=== PATIENT | female | born 1945 | race African-American/Black ===

== ENCOUNTER 2018-02-09 19:31 | Inpatient (IN) | payer MEDICARE, MEDICAID ==
[~2018-02-09] VITALS: Ht 175.3 cm; Wt 61.7 kg
[~2018-02-09 19:31] MED LIST: AMLO10TA4 PO; ASPI-1159 PO; BACL-141; BUPR-84; DOXE25CA3; GABA800T97 PO; IBUP-2030 PO; LISI-604 PO; METH-612 PO; OXYCONTIN; QUET50TA; TRAZ-129
[2018-02-09] MEDS ORDERED: SODIUM CHLORIDE 0.9% 1,000 ML IV ONE (19:51)
[2018-02-09 20:17] LABS: BASOPHILS % 0.8 % (0.0-2.0); HEMATOCRIT. 33.4 % (36.0-48.0); HEMOGLOBIN. 10.8 g/dL (12.0-16.0); MEAN CORPUSCULAR HEMOGLOBIN 28.4 pg (28.0-32.0); MEAN CORPUSCULAR VOLUME 87.7 fL (81.0-99.0); MEAN PLATELET VOLUME 6.8 fl (7.4-10.4); MONOCYTES % 5.1 % (2.0-8.0); NEUTROPHILS % 82.1 % (40.0-76.0); PLATELET 520 x1000/uL (130-400); RED CELL DISTRIBUTION WIDTH 17.2 % (11.6-14.6)
[2018-02-09 20:20] LABS: CHLORIDE 111 mEq/L (98-107)
[2018-02-09 20:22] LABS: PROTHROMBIN TIME 10.7 sec (9.4-11.6)
[2018-02-09 20:25] LABS: AMMONIA < 25 uMol/L (<32); ETHANOL BLOOD < 10 mg/dL
[2018-02-09 20:28] LABS: CLARITY URINE CLEAR (CLEAR); COLOR URINE YELLOW (YELLOW); KETONES URINE NEGATIVE (NEGATIVE); LEUKOCYTE ESTERASE URINE NEGATIVE (NEGATIVE); NITRITE URINE NEGATIVE (NEGATIVE); OCCULT BLOOD URINE 2+ (NEGATIVE); PH URINE 5.5 (4.5-8.0); PROTEIN URINE 1+ (NEGATIVE); SPECIFIC GRAVITY URINE 1.013 (1.005-1.030); UROBILINOGEN URINE 0.2 E.U./dL (0.2-1.0)
[2018-02-09 20:45] LABS: *AMPHETAMINES SCREEN URINE NEGATIVE (NEGATIVE); *BARBITURATES SCREEN URINE NEGATIVE (NEGATIVE); *BENZODIAZEPINES SCREEN URINE NEGATIVE (NEGATIVE); *COCAINE SCREEN URINE NEGATIVE (NEGATIVE); METHADONE URINE SCREEN NEGATIVE (NEGATIVE); OPIATES URINE SCREEN NEGATIVE (NEGATIVE)
[2018-02-09 20:47] LABS: CANNABINOID URINE SCREEN NEGATIVE (NEGATIVE); PHENCYCLIDINE URINE SCREEN NEGATIVE (NEGATIVE)
[2018-02-09] MEDS ORDERED: LORAZEPAM 2MG/ML CPJ IV ONE (22:15)
[2018-02-10 04:37] VITALS: BP 107/88
[2018-02-10] MEDS ORDERED: LORAZEPAM 2MG/ML CPJ IV PRN (05:45)
[2018-02-10] MEDS ORDERED: ONDANSETRON HCL 4MG/2ML VIAL IV PRN (05:45)
[2018-02-10 06:00] VITALS: BP 107/88
[2018-02-10] MEDS ORDERED: DEXT 5%/0.45% NACL KCL 20MEQ/L 1,000 ML IV ONE (07:00)
[2018-02-10 08:00] VITALS: BP 196/100
[2018-02-10 08:26] LABS: HEMATOCRIT 33.5 % (36.0-48.0); HEMOGLOBIN 11.2 g/dL (12.0-16.0); MEAN CORPUSCULAR VOLUME 86.8 fL (81.0-99.0); PLATELET 522 x1000/uL (130-400); RED BLOOD CELL COUNT 3.86 mill/uL (4.2-5.4); RED CELL DISTRIBUTION WIDTH 17.3 % (11.6-14.6)
[2018-02-10] MEDS: PANTOPRAZOLE SODIUM 40 MG/VIAL IV SCH (09:18)
[2018-02-10] MEDS ORDERED: ONDANSETRON 4MG ODT PO PRN (10:00)
[2018-02-10] MEDS: CLONIDINE 0.1MG TABLET PO PRN (10:10)
[2018-02-10] MEDS: LISINOPRIL 20MG TABLET PO SCH (11:16)
[2018-02-10] MEDS: AMLODIPINE 10MG TABLET PO SCH (11:16)
[2018-02-10 12:00] VITALS: BP 192/91
[2018-02-10] MEDS: CEFTRIAXONE 1 G PREMIX 50 ML IV SCH (12:00)
[2018-02-10 16:00] VITALS: BP 130/103
[2018-02-10 20:00] VITALS: BP 182/97
[2018-02-10] MEDS: HYDRALAZINE 20MG/ML VIAL IV PRN (22:00)
[2018-02-11] VITALS: BP 166/93
[2018-02-11] MEDS: HYDRALAZINE 20MG/ML VIAL IV PRN (06:03)
[2018-02-11 07:05] LABS: BASOPHILS % 0.7 % (0.0-2.0); EOSINOPHILS % 0.2 % (0.0-5.0); HEMATOCRIT. 37.8 % (36.0-48.0); HEMOGLOBIN. 12.5 g/dL (12.0-16.0); LYMPHOCYTES % 14.6 % (20.0-50.0); MEAN CORPUSCULAR HEMOGLOBIN 28.5 pg (28.0-32.0); MEAN CORPUSCULAR VOLUME 86.5 fL (81.0-99.0); MEAN PLATELET VOLUME 7.3 fl (7.4-10.4); MONOCYTES % 8.7 % (2.0-8.0); NEUTROPHILS % 75.8 % (40.0-76.0); PLATELET 596 x1000/uL (130-400); RED BLOOD CELL COUNT 4.37 mill/uL (4.2-5.4); RED CELL DISTRIBUTION WIDTH 17.4 % (11.6-14.6)
[2018-02-11 08:00] VITALS: BP 157/79
[2018-02-11] MEDS: PANTOPRAZOLE SODIUM 40 MG/VIAL IV SCH (08:56)
[2018-02-11] MEDS: LISINOPRIL 20MG TABLET PO SCH (08:56)
[2018-02-11] MEDS: AMLODIPINE 10MG TABLET PO SCH (08:57)
[2018-02-11] MEDS: CEFTRIAXONE 1 G PREMIX 50 ML IV SCH (11:48)
[2018-02-11 12:00] VITALS: BP 161/98
[2018-02-11] MEDS: CLONIDINE 0.1MG TABLET PO PRN (12:35)
[2018-02-11] MEDS ORDERED: LACTULOSE 20G/30ML UDC PO NR (13:15)
[2018-02-11 16:00] VITALS: BP 157/89
[2018-02-11] MEDS: QUETIAPINE FUMARATE 25MG TABLET PO SCH ×2 (17:07→21:01)
[2018-02-11] MEDS: CEPHALEXIN 500MG CAPSULE PO SCH (17:47)
[2018-02-11 20:00] VITALS: BP 144/89
[2018-02-11] MEDS: SENNOSIDES 8.6MG TABLET PO PRN (21:01)
[2018-02-12] MEDS: CEPHALEXIN 500MG CAPSULE PO SCH ×3 (00:14→11:51)
[2018-02-12 03:44] VITALS: BP 137/88
[2018-02-12 06:37] LABS: HEMOGLOBIN 11.9 g/dL (12.0-16.0); MEAN CORPUSCULAR HEMOGLOBIN 28.4 pg (28.0-32.0); MEAN CORPUSCULAR VOLUME 87.9 fL (81.0-99.0); PLATELET 460 x1000/uL (130-400); RED CELL DISTRIBUTION WIDTH 17.7 % (11.6-14.6)
[2018-02-12] MEDS: LORAZEPAM 2MG/ML CPJ IV PRN ×3 (07:02→21:26)
[2018-02-12 08:00] VITALS: BP 115/72
[2018-02-12] MEDS: SENNOSIDES 8.6MG TABLET PO PRN (08:02)
[2018-02-12] MEDS: PANTOPRAZOLE SODIUM 40 MG/VIAL IV SCH (08:02)
[2018-02-12] MEDS: QUETIAPINE FUMARATE 25MG TABLET PO SCH ×2 (08:03→20:27)
[2018-02-12] MEDS: AMLODIPINE 10MG TABLET PO SCH (08:04)
[2018-02-12] MEDS: LISINOPRIL 20MG TABLET PO SCH (08:04)
[2018-02-12] MEDS: SODIUM CHLORIDE 0.9% 1,000 ML IV SCH (11:51)
[2018-02-12 12:00] VITALS: BP 138/79
[2018-02-12] MEDS ORDERED: LEVAQUIN XX SCH (15:45)
[2018-02-12] MEDS ORDERED: LEVOFLOXACIN 500MG TABLET PO SCH (15:45)
[2018-02-12 16:00] VITALS: BP 132/78
[2018-02-12] MEDS ORDERED: LEVOFLOXACIN 250MG TABLET PO SCH (16:00)
[2018-02-12] MEDS ORDERED: NA PHOS,M-B/NA PHOS,DI-BA ENEMA 118ML PR PRN (16:45)
[2018-02-12] MEDS ORDERED: NA PHOS,M-B/NA PHOS,DI-BA ENEMA 118ML PR NR (18:00)
[2018-02-12 20:00] VITALS: BP 137/71
[2018-02-13] VITALS: BP 106/57
[2018-02-13 04:00] VITALS: BP 91/54
[2018-02-13] MEDS: SODIUM CHLORIDE 0.9% 1,000 ML IV SCH ×2 (04:19→21:25)
[2018-02-13] MEDS: LORAZEPAM 2MG/ML CPJ IV PRN ×2 (04:19→22:35)
[2018-02-13 06:01] LABS: CLARITY URINE CLEAR (CLEAR); COLOR URINE YELLOW (YELLOW); KETONES URINE NEGATIVE (NEGATIVE); LEUKOCYTE ESTERASE URINE NEGATIVE (NEGATIVE); NITRITE URINE NEGATIVE (NEGATIVE); OCCULT BLOOD URINE NEGATIVE (NEGATIVE); PROTEIN URINE NEGATIVE (NEGATIVE); SPECIFIC GRAVITY URINE 1.009 (1.005-1.030); UROBILINOGEN URINE 0.2 E.U./dL (0.2-1.0)
[2018-02-13 06:05] LABS: HEMATOCRIT 32.4 % (36.0-48.0); HEMOGLOBIN 10.4 g/dL (12.0-16.0); MEAN CORPUSCULAR HEMOGLOBIN 28.6 pg (28.0-32.0); PLATELET 385 x1000/uL (130-400); RED BLOOD CELL COUNT 3.63 mill/uL (4.2-5.4); RED CELL DISTRIBUTION WIDTH 17.5 % (11.6-14.6)
[2018-02-13 08:00] VITALS: BP 113/65
[2018-02-13] MEDS: FAMOTIDINE 20MG TABLET PO SCH (09:00)
[2018-02-13] MEDS: QUETIAPINE FUMARATE 25MG TABLET PO SCH ×2 (09:00→21:25)
[2018-02-13] MEDS: LISINOPRIL 20MG TABLET PO SCH (09:00)
[2018-02-13] MEDS: AMLODIPINE 10MG TABLET PO SCH (09:01)
[2018-02-13] MEDS: PANTOPRAZOLE SODIUM 40 MG/VIAL IV SCH (09:29)
[2018-02-13] MEDS: LEVOFLOXACIN 250MG TABLET PO SCH (11:18)
[2018-02-13 12:00] VITALS: BP 134/52
[2018-02-13 16:00] VITALS: BP 108/63
[2018-02-13] MEDS ORDERED: LACTULOSE 20G/30ML UDC PO SCH (16:45)
[2018-02-13] MEDS: ACETAMINOPHEN 325MG TABLET PO PRN (17:20)
[2018-02-13 20:00] VITALS: BP 117/70
[2018-02-14] VITALS: BP 114/58
[2018-02-14 04:00] VITALS: BP 129/66
[2018-02-14 07:15] LABS: EOSINOPHILS % 4.1 % (0.0-5.0); HEMATOCRIT. 28.1 % (36.0-48.0); HEMOGLOBIN. 9.4 g/dL (12.0-16.0); MEAN CORPUSCULAR HEMOGLOBIN 29.5 pg (28.0-32.0); MEAN CORPUSCULAR VOLUME 88.4 fL (81.0-99.0); MEAN PLATELET VOLUME 7.5 fl (7.4-10.4); MONOCYTES % 10.8 % (2.0-8.0); NEUTROPHILS % 45.1 % (40.0-76.0); PLATELET 334 x1000/uL (130-400); RED BLOOD CELL COUNT 3.18 mill/uL (4.2-5.4); RED CELL DISTRIBUTION WIDTH 16.9 % (11.6-14.6)
[2018-02-14 08:00] VITALS: BP 126/68
[2018-02-14] MEDS: FAMOTIDINE 20MG TABLET PO SCH (08:34)
[2018-02-14] MEDS: QUETIAPINE FUMARATE 25MG TABLET PO SCH (08:34)
[2018-02-14] MEDS: LISINOPRIL 20MG TABLET PO SCH (08:34)
[2018-02-14] MEDS: AMLODIPINE 10MG TABLET PO SCH (08:34)
[2018-02-14 11:57] VITALS: BP 152/70
[2018-02-14] MEDS: LEVOFLOXACIN 250MG TABLET PO SCH (12:13)
[2018-02-14] MEDS: ACETAMINOPHEN 325MG TABLET PO PRN (12:14)
[2018-02-14 16:06] VITALS: BP 131/80
[2018-02-14 17:51] VITALS: BP 131/80
== END 2018-02-14 18:46 | disposition home or self-care (01) | DRG 917 ==
LOC: ER 19:49 → 7WST 23:10 → ENRESERV 02-10 02:22
PROVIDERS: ADMIT Internal Medicine; ATTEND Internal Medicine
DX: T50.991A Poisoning by other drugs, medicaments and biological substances, accidental (unintentional), initial encounter (principal); G93.40 Encephalopathy, unspecified; N17.9 Acute kidney failure, unspecified; E86.0 Dehydration; F29 Unspecified psychosis not due to a substance or known physiological condition; F32.9 Major depressive disorder, single episode, unspecified; F41.9 Anxiety disorder, unspecified; R73.9 Hyperglycemia, unspecified; D64.9 Anemia, unspecified; K59.00 Constipation, unspecified; Z76.5 Malingerer [conscious simulation]; Z79.82 Long term (current) use of aspirin; Z79.899 Other long term (current) drug therapy; Z86.73 Personal history of transient ischemic attack (TIA), and cerebral infarction without residual deficits; Y92.89 Other specified places as the place of occurrence of the external cause
CPT/HCPCS: 36415; 70450; 71045; 74018; 76770; 80048; 80053; 80305; 80307; 81003; 82140; 82570; 83605; 84300; 84484; 85025; 85027; 85610; 87040; 87086; 93005; 96374; 99291; C9113; G0482; J0360; J0696; J2060; J7030; J7040; J7050

== ENCOUNTER 2018-11-13 18:36 | Inpatient (IN) | payer BC, MEDICAID ==
[~2018-11-13] VITALS: Ht 167.6 cm; Wt 59.2 kg
[~2018-11-13 18:36] MED LIST changes: -ASPI-1159 PO; -BACL-141; -BUPR-84; -DOXE25CA3; -GABA800T97 PO; -IBUP-2030 PO; -METH-612 PO; -OXYCONTIN; -QUET50TA; +QUET50TA PO; -TRAZ-129
[2018-11-13] MEDS ORDERED: ASPIRIN 81MG TABLET PO ONE (19:30)
[2018-11-13] MEDS ORDERED: NITROGLYCERIN 0.4MG TABLET SL SL PRN (19:30)
[2018-11-13 20:11] LABS: BASOPHILS % 0.8 % (0.0-2.0); EOSINOPHILS % 1.3 % (0.0-5.0); HEMATOCRIT. 31.4 % (36.0-48.0); HEMOGLOBIN. 10.3 g/dL (12.0-16.0); LYMPHOCYTES % 18.7 % (20.0-50.0); MEAN CORPUSCULAR HEMOGLOBIN 28.3 pg (28.0-32.0); MEAN CORPUSCULAR VOLUME 86.6 fL (81.0-99.0); MEAN PLATELET VOLUME 7.9 fl (7.4-10.4); MONOCYTES % 7.1 % (2.0-8.0); NEUTROPHILS % 72.1 % (40.0-76.0); PLATELET 402 x1000/uL (130-400); RED BLOOD CELL COUNT 3.63 mill/uL (4.2-5.4); RED CELL DISTRIBUTION WIDTH 17.1 % (11.6-14.6)
[2018-11-13 20:14] LABS: CHLORIDE 110 mEq/L (98-107)
[2018-11-13 20:18] LABS: D-DIMER 1.11 mg/L FEU (<0.50); PARTIAL THROMBOPLASTIN TIME 24.8 sec (23.4-31.0); PROTHROMBIN TIME 9.7 sec (9.1-11.1)
[2018-11-13 20:19] LABS: ETHANOL BLOOD < 10 mg/dL
[2018-11-13 23:09] LABS: *AMPHETAMINES SCREEN URINE NEGATIVE (NEGATIVE); *BARBITURATES SCREEN URINE NEGATIVE (NEGATIVE); *BENZODIAZEPINES SCREEN URINE NEGATIVE (NEGATIVE)
[2018-11-13 23:10] LABS: CANNABINOID URINE SCREEN NEGATIVE (NEGATIVE); METHADONE URINE SCREEN NEGATIVE (NEGATIVE); OPIATES URINE SCREEN NEGATIVE (NEGATIVE); PHENCYCLIDINE URINE SCREEN NEGATIVE (NEGATIVE)
[2018-11-13 23:11] LABS: *COCAINE SCREEN URINE NEGATIVE (NEGATIVE)
[2018-11-14] VITALS: BP 143/71
[2018-11-14] MEDS ORDERED: TEMAZEPAM 15MG CAPSULE PO PRN (00:45)
[2018-11-14 02:19] VITALS: BP 143/71
[2018-11-14] MEDS ORDERED: ACETAMINOPHEN 325MG TABLET PO PRN (03:00)
[2018-11-14] MEDS: HYDROCODONE/ACETAMINOPHEN 5/325MG TABLET PO PRN ×3 (03:14→15:23)
[2018-11-14] MEDS ORDERED: PANTOPRAZOLE 40MG DR TABLET PO SCH (07:40)
[2018-11-14 08:00] VITALS: BP 112/59
[2018-11-14 08:22] LABS: CREATINE KINASE 370 IU/L (26-192)
[2018-11-14 08:23] LABS: CREATINE KINASE MB FRACTION 5.4 ng/mL (0.5-3.6)
[2018-11-14] MEDS ORDERED: ENOXAPARIN 30MG/0.3ML SYR SUBCUT SCH (09:00)
[2018-11-14] MEDS ORDERED: ASPIRIN 81MG TABLET PO SCH (09:00)
[2018-11-14 12:00] VITALS: BP 118/54
[2018-11-14 12:04] LABS: HEMATOCRIT 30.3 % (36.0-48.0); HEMOGLOBIN 9.7 g/dL (12.0-16.0); MEAN CORPUSCULAR HEMOGLOBIN 28.3 pg (28.0-32.0); MEAN CORPUSCULAR VOLUME 88.3 fL (81.0-99.0); PLATELET 351 x1000/uL (130-400); RED BLOOD CELL COUNT 3.43 mill/uL (4.2-5.4); RED CELL DISTRIBUTION WIDTH 17.4 % (11.6-14.6)
[2018-11-14 12:07] LABS: CHLORIDE 109 mEq/L (98-107)
[2018-11-14 16:00] VITALS: BP 120/56
[2018-11-14 17:02] VITALS: BP 121/64
[2018-11-14 18:04] LABS: CREATINE KINASE 390 IU/L (26-192)
[2018-11-14 18:05] LABS: CREATINE KINASE MB FRACTION 4.1 ng/mL (0.5-3.6)
== END 2018-11-14 19:50 | disposition home or self-care (01) | DRG 880 ==
LOC: ER 18:36 → EDBEDREQ 19:31 → EDBEDREQTM 19:31 → 7WST 21:56 → EDBEDREQTM 21:59 → EDBEDREQ 21:59 → ENRESERV 22:03 → 7WST 23:53
PROVIDERS: ADMIT Internal Medicine; ATTEND Internal Medicine
DX: F41.0 Panic disorder [episodic paroxysmal anxiety] (principal); G93.40 Encephalopathy, unspecified; M62.82 Rhabdomyolysis; G89.29 Other chronic pain; I12.9 Hypertensive chronic kidney disease with stage 1 through stage 4 chronic kidney disease, or unspecified chronic kidney disease; R79.1 Abnormal coagulation profile; N18.9 Chronic kidney disease, unspecified
CPT/HCPCS: 36415; 71045; 78582; 80305; 82550; 82553; 83880; 84484; 85027; 85379; 93005; 93306; 93970; 99285; A9558; G0482; J1650

== ENCOUNTER 2018-12-05 19:33 | Emergency (ER) | payer BC, MEDICAID ==
[~2018-12-05] VITALS: Ht 165.1 cm; Wt 61.0 kg
[2018-12-05] MEDS ORDERED: SODIUM CHLORIDE 0.9% 1,000 ML IV ONE (22:34)
[2018-12-05 23:09] LABS: BASOPHILS % 0.6 % (0.0-2.0); EOSINOPHILS % 1.5 % (0.0-5.0); HEMATOCRIT. 30.5 % (36.0-48.0); HEMOGLOBIN. 9.9 g/dL (12.0-16.0); LYMPHOCYTES % 19.5 % (20.0-50.0); MEAN CORPUSCULAR HEMOGLOBIN 27.9 pg (28.0-32.0); MEAN CORPUSCULAR VOLUME 85.9 fL (81.0-99.0); MEAN PLATELET VOLUME 7.5 fl (7.4-10.4); MONOCYTES % 6.9 % (2.0-8.0); NEUTROPHILS % 71.5 % (40.0-76.0); PLATELET 410 x1000/uL (130-400); RED BLOOD CELL COUNT 3.55 mill/uL (4.2-5.4); RED CELL DISTRIBUTION WIDTH 16.1 % (11.6-14.6)
[2018-12-05 23:15] LABS: CHLORIDE 106 mEq/L (98-107)
[2018-12-05 23:17] LABS: PROTHROMBIN TIME 9.9 sec (9.1-11.1)
[2018-12-05 23:21] LABS: ETHANOL BLOOD < 10 mg/dL
[2018-12-05] MEDS ORDERED: ACETAMINOPHEN 325MG TABLET PO SCH (23:30)
[2018-12-06] MEDS ORDERED: KETOROLAC 15MG/ML VIAL IV ONE (01:00)
[2018-12-06 01:12] LABS: CLARITY URINE CLEAR (CLEAR); COLOR URINE YELLOW (YELLOW); KETONES URINE NEGATIVE (NEGATIVE); LEUKOCYTE ESTERASE URINE NEGATIVE (NEGATIVE); NITRITE URINE NEGATIVE (NEGATIVE); OCCULT BLOOD URINE NEGATIVE (NEGATIVE); PROTEIN URINE NEGATIVE (NEGATIVE); SPECIFIC GRAVITY URINE 1.003 (1.005-1.030); UROBILINOGEN URINE 0.2 E.U./dL (0.2-1.0)
[2018-12-06 01:38] VITALS: BP 152/72
[2018-12-06 01:43] LABS: *AMPHETAMINES SCREEN URINE NEGATIVE (NEGATIVE); *BARBITURATES SCREEN URINE NEGATIVE (NEGATIVE); *BENZODIAZEPINES SCREEN URINE NEGATIVE (NEGATIVE); *COCAINE SCREEN URINE NEGATIVE (NEGATIVE)
[2018-12-06 01:44] LABS: CANNABINOID URINE SCREEN NEGATIVE (NEGATIVE); METHADONE URINE SCREEN NEGATIVE (NEGATIVE); OPIATES URINE SCREEN NEGATIVE (NEGATIVE); PHENCYCLIDINE URINE SCREEN NEGATIVE (NEGATIVE)
== END 2018-12-06 02:04 | disposition short-term general hospital (02) ==
LOC: ER 19:33 → CANBEDREQ 12-06 04:22
DX: G93.40 Encephalopathy, unspecified (principal); N28.9 Disorder of kidney and ureter, unspecified; D64.9 Anemia, unspecified; G89.29 Other chronic pain; M54.9 Dorsalgia, unspecified; I12.9 Hypertensive chronic kidney disease with stage 1 through stage 4 chronic kidney disease, or unspecified chronic kidney disease; N18.9 Chronic kidney disease, unspecified; F41.9 Anxiety disorder, unspecified; Z90.49 Acquired absence of other specified parts of digestive tract; Z79.899 Other long term (current) drug therapy
CPT/HCPCS: 36415; 70450; 71045; 74176; 80053; 80305; 81003; 82140; 83605; 83690; 83880; 84484; 85025; 85610; 93005; 96374; 99285; G0482; J1885; J7030

== ENCOUNTER 2018-12-11 20:04 | Emergency (ER) | payer BC, MEDICAID ==
[~2018-12-11] VITALS: Ht 165.1 cm; Wt 66.0 kg
[2018-12-11 20:15] VITALS: BP 146/82
== END 2018-12-11 23:58 | disposition left against medical advice (07) ==
LOC: ER 23:49
DX: Z53.21 Procedure and treatment not carried out due to patient leaving prior to being seen by health care provider (principal)

== ENCOUNTER 2018-12-15 17:49 | Emergency (ER) | payer BC, MEDICAID ==
[~2018-12-15] VITALS: Ht 162.6 cm; Wt 61.0 kg
[2018-12-15] MEDS ORDERED: CLONIDINE 0.2MG TABLET PO ONE (18:30)
[2018-12-15] MEDS ORDERED: IPRATROPIUM/ALBUTEROL 0.5-3(2.5)MG/3ML NEB HHN ONE (18:30)
[2018-12-15] MEDS ORDERED: ASPIRIN 81MG TABLET PO ONE (18:30)
[2018-12-15 19:55] LABS: EOSINOPHILS % 2.4 % (0.0-5.0); HEMATOCRIT. 35.3 % (36.0-48.0); HEMOGLOBIN. 11.4 g/dL (12.0-16.0); LYMPHOCYTES % 21.7 % (20.0-50.0); MEAN CORPUSCULAR VOLUME 86.8 fL (81.0-99.0); MEAN PLATELET VOLUME 8.7 fl (7.4-10.4); MONOCYTES % 5.6 % (2.0-8.0); NEUTROPHILS % 69.3 % (40.0-76.0); PLATELET 358 x1000/uL (130-400); RED BLOOD CELL COUNT 4.07 mill/uL (4.2-5.4); RED CELL DISTRIBUTION WIDTH 16.9 % (11.6-14.6)
[2018-12-15 20:01] LABS: CHLORIDE 109 mEq/L (98-107)
[2018-12-15 20:03] LABS: PROTHROMBIN TIME 9.8 sec (9.1-11.1)
[2018-12-15 20:14] LABS: CLARITY URINE CLEAR (CLEAR); COLOR URINE YELLOW (YELLOW); KETONES URINE NEGATIVE (NEGATIVE); LEUKOCYTE ESTERASE URINE 3+ (NEGATIVE); NITRITE URINE POSITIVE (NEGATIVE); OCCULT BLOOD URINE NEGATIVE (NEGATIVE); PROTEIN URINE NEGATIVE (NEGATIVE); SPECIFIC GRAVITY URINE 1.002 (1.005-1.030); UROBILINOGEN URINE 0.2 E.U./dL (0.2-1.0)
[2018-12-15] MEDS ORDERED: CEFTRIAXONE 1 G PREMIX 50 ML IV ONE (21:15)
[2018-12-15] MEDS ORDERED: LORAZEPAM 1MG TABLET PO ONE (21:45)
[2018-12-15] MEDS ORDERED: NITROFURANTOIN 100MG M/M CAPSULE PO ONE (21:45)
[2018-12-15 22:05] VITALS: BP 116/46
== END 2018-12-15 22:09 | disposition home or self-care (01) ==
LOC: ER 17:49 → EDBEDREQTM 21:24 → EDBEDREQ 21:24 → ER 22:09 → CANBEDREQ 12-16 00:42
DX: N39.0 Urinary tract infection, site not specified (principal); I10 Essential (primary) hypertension; R07.89 Other chest pain; F41.9 Anxiety disorder, unspecified; R06.02 Shortness of breath
CPT/HCPCS: 36415; 71045; 80053; 81003; 83605; 83690; 83880; 84484; 85025; 85610; 85730; 87040; 87077; 87086; 87186; 93005; 94003; 94640; 99284; J7620; J0696

== ENCOUNTER 2019-06-01 12:23 | Inpatient (IN) | payer BC, MEDICAID ==
[~2019-06-01] VITALS: Ht 162.6 cm; Wt 64.9 kg
[2019-06-01 13:00] LABS: HEMATOCRIT. 26.4 % (36.0-48.0); HEMOGLOBIN. 8.6 g/dL (12.0-16.0); MEAN PLATELET VOLUME 7.8 fl (7.4-10.4); PLATELET 388 x1000/uL (130-400); RED BLOOD CELL COUNT 3.07 mill/uL (4.2-5.4); RED CELL DISTRIBUTION WIDTH 15.4 % (11.6-14.6)
[2019-06-01 13:08] LABS: CHLORIDE 106 mEq/L (98-107)
[2019-06-01] MEDS ORDERED: ALBUTEROL (0.083%) 2.5MG/3ML NEB HHN STA (13:17)
[2019-06-01 13:44] LABS: PLATELET ESTIMATE NORMAL
[2019-06-01] MEDS ORDERED: AZITHROMYCIN 500 MG in DEXT 5% WATER 250 ML IV STA (14:07)
[2019-06-01 14:20] LABS: PHOSPHORUS 5.2 mg/dL (2.5-4.9)
[2019-06-01] MEDS ORDERED: SODIUM CHLORIDE 0.9% 1,000 ML IV ONE (14:41)
[2019-06-01] MEDS ORDERED: ACETAMINOPHEN 650MG SUPP PR PRN (15:30)
[2019-06-01] MEDS ORDERED: MAGNESIUM/ALUMINUM HYDROXIDE/SIMETHICONE 30ML UDC PO PRN (15:30)
[2019-06-01] MEDS ORDERED: ONDANSETRON HCL 4MG/2ML INJ IV PRN (15:30)
[2019-06-01] MEDS ORDERED: HYDROCODONE/ACETAMINOPHEN 5/325MG TABLET PO PRN (15:30)
[2019-06-01] MEDS ORDERED: GUAIFENESIN 200MG/10ML SUGAR FREE UDC PO PRN (15:30)
[2019-06-01] MEDS ORDERED: IPRATROPIUM/ALBUTEROL 0.5-3(2.5)MG/3ML NEB INH PRN (15:30)
[2019-06-01] MEDS ORDERED: DOCUSATE SODIUM 100MG CAPSULE PO PRN (15:30)
[2019-06-01] MEDS ORDERED: CLONIDINE 0.1MG TABLET PO PRN (15:30)
[2019-06-01 16:00] LABS: TOTAL IRON BINDING CAPACITY 300 ug/dL (250-450)
[2019-06-01 16:24] LABS: BG BASE EXCESS -12.8 mmol/L (-2.0-2.0); BG CARBOXYHEMOGLOBIN 1.2 % (0.5-1.5); BG DEOXYHEMOGLOBIN 6.9 % (0.0-5.0); BG FRACTION INSPIRED OXYGEN 21; BG HCO3 ACT 13.6 mmol/L (22.0-26.0); BG METHEMOGLOBIN 0.3 % (0.0-1.5); BG OXYHEMOGLOBIN 91.6 % (94.0-97.0); BG PCO2 32.8 mmHg (35.0-45.0); BG PH 7.235 (7.350-7.450); BG PO2 79.2 mmHg (75.0-100.0); BG SAMPLE SITE RIGHT BRACHIAL; BG TOTAL HEMOGLOBIN 8.3 g/dL (12.0-18.0); BG VENT MODE ROOM AIR
[2019-06-01] MEDS ORDERED: SODIUM BICARBONATE 8.4% 1 MEQ/ML 50ML SYR IV ONE (16:30)
[2019-06-01 16:42] LABS: PROTHROMBIN TIME 10.3 sec (9.6-11.0)
[2019-06-01 17:00] VITALS: BP 105/55
[2019-06-01 18:37] VITALS: BP 105/55
[2019-06-01] MEDS ORDERED: GABA-531 PO (18:50)
[2019-06-01] MEDS ORDERED: VANCOMYCIN 1500MG in DEXTROSE 5% WATER 250ML IV SCH (19:30)
[2019-06-01 20:00] VITALS: BP 106/52
[2019-06-01 20:29] LABS: HEMATOCRIT 25.5 % (36.0-48.0); HEMOGLOBIN 8.2 g/dL (12.0-16.0)
[2019-06-01] MEDS: PIPERACILLIN/TAZ 2.25G PREMIX 50 ML IV SCH (21:37)
[2019-06-01] MEDS: SODIUM CHLORIDE 0.9% 1,000 ML IV SCH (21:38)
[2019-06-01 22:50] LABS: CLARITY URINE CLEAR (CLEAR); COLOR URINE YELLOW (YELLOW); KETONES URINE NEGATIVE (NEGATIVE); LEUKOCYTE ESTERASE URINE NEGATIVE (NEGATIVE); NITRITE URINE NEGATIVE (NEGATIVE); OCCULT BLOOD URINE TRACE (NEGATIVE); PH URINE 5.5 (4.5-8.0); PROTEIN URINE 1+ (NEGATIVE); SPECIFIC GRAVITY URINE 1.015 (1.005-1.030); UROBILINOGEN URINE 0.2 E.U./dL (0.2-1.0)
[2019-06-01 23:05] LABS: *AMPHETAMINES SCREEN URINE NEGATIVE (NEGATIVE); *BARBITURATES SCREEN URINE NEGATIVE (NEGATIVE); *BENZODIAZEPINES SCREEN URINE NEGATIVE (NEGATIVE); *COCAINE SCREEN URINE NEGATIVE (NEGATIVE); METHADONE URINE SCREEN NEGATIVE (NEGATIVE); OPIATES URINE SCREEN NEGATIVE (NEGATIVE)
[2019-06-01 23:06] LABS: CANNABINOID URINE SCREEN NEGATIVE (NEGATIVE); PHENCYCLIDINE URINE SCREEN NEGATIVE (NEGATIVE)
[2019-06-02] VITALS: BP 108/59
[2019-06-02 00:51] LABS: CREATINE KINASE 946 IU/L (26-192)
[2019-06-02 00:52] LABS: CREATINE KINASE MB FRACTION 13.1 ng/mL (0.5-3.6)
[2019-06-02 04:00] VITALS: BP 112/60
[2019-06-02] MEDS: PIPERACILLIN/TAZ 2.25G PREMIX 50 ML IV SCH ×5 (05:50→23:43)
[2019-06-02 06:47] LABS: HEMATOCRIT. 23.8 % (36.0-48.0); HEMOGLOBIN. 7.8 g/dL (12.0-16.0); MEAN CORPUSCULAR VOLUME 85.9 fL (81.0-99.0); MEAN PLATELET VOLUME 7.9 fl (7.4-10.4); PLATELET 326 x1000/uL (130-400); RED BLOOD CELL COUNT 2.77 mill/uL (4.2-5.4); RED CELL DISTRIBUTION WIDTH 15.2 % (11.6-14.6)
[2019-06-02 06:53] LABS: CHLORIDE 116 mEq/L (98-107)
[2019-06-02 07:01] LABS: LDL CHOLESTEROL 76 mg/dL (5-100)
[2019-06-02 07:02] LABS: CREATINE KINASE 818 IU/L (26-192); CREATINE KINASE MB FRACTION 10.2 ng/mL (0.5-3.6); HDL CHOLESTEROL 53 mg/dL (40-59); T4 FREE 0.82 ng/dL (0.76-1.46)
[2019-06-02 08:00] VITALS: BP 101/55
[2019-06-02] MEDS: FAMOTIDINE 20MG/2ML VIAL IV SCH (08:16)
[2019-06-02] MEDS: QUETIAPINE FUMARATE 50MG TABLET PO SCH (08:17)
[2019-06-02] MEDS: SODIUM CHLORIDE 0.9% 1,000 ML IV SCH ×2 (08:17→12:24)
[2019-06-02 12:00] VITALS: BP 115/65
[2019-06-02 14:08] LABS: PLATELET ESTIMATE NORMAL
[2019-06-02] MEDS: SODIUM CHLORIDE 0.45% 1,000 ML IV SCH (14:21)
[2019-06-02] MEDS: ACETAMINOPHEN 325MG TABLET PO PRN (15:30)
[2019-06-02 16:00] VITALS: BP 123/63
[2019-06-02 20:00] VITALS: BP 111/49
[2019-06-02] MEDS ORDERED: HYDR-4135 PO (20:06)
[2019-06-02] MEDS ORDERED: LEVO75TA7 PO (20:06)
[2019-06-02] MEDS ORDERED: TRAZ300T11 PO (20:06)
[2019-06-02] MEDS ORDERED: HYDR-4009 PO (20:06)
[2019-06-02] MEDS ORDERED: MIRT-91 PO (20:06)
[2019-06-02] MEDS: TRAZODONE HCL 100MG TABLET PO SCH (20:46)
[2019-06-02] MEDS: DIPHENHYDRAMINE 50MG/ML VIAL IV PRN (22:15)
[2019-06-02] MEDS: LORAZEPAM 0.5MG TABLET PO PRN (23:36)
[2019-06-03] VITALS: BP 117/56
[2019-06-03 04:00] VITALS: BP 142/66
[2019-06-03] MEDS: ACETAMINOPHEN 325MG TABLET PO PRN ×2 (04:53→21:43)
[2019-06-03] MEDS: LORAZEPAM 0.5MG TABLET PO PRN ×3 (04:59→21:42)
[2019-06-03] MEDS: PIPERACILLIN/TAZ 2.25G PREMIX 50 ML IV SCH ×3 (05:00→23:46)
[2019-06-03 07:44] LABS: BASOPHILS % 0.5 % (0.0-2.0); HEMATOCRIT. 23.4 % (36.0-48.0); HEMOGLOBIN. 7.7 g/dL (12.0-16.0); LYMPHOCYTES % 15.4 % (20.0-50.0); MEAN CORPUSCULAR HEMOGLOBIN 28.2 pg (28.0-32.0); MEAN CORPUSCULAR VOLUME 85.4 fL (81.0-99.0); MEAN PLATELET VOLUME 7.8 fl (7.4-10.4); NEUTROPHILS % 68.1 % (40.0-76.0); PLATELET 344 x1000/uL (130-400); RED BLOOD CELL COUNT 2.75 mill/uL (4.2-5.4); RED CELL DISTRIBUTION WIDTH 15.8 % (11.6-14.6)
[2019-06-03 08:00] VITALS: BP 122/59
[2019-06-03] MEDS: FAMOTIDINE 20MG/2ML VIAL IV SCH (08:40)
[2019-06-03] MEDS: QUETIAPINE FUMARATE 50MG TABLET PO SCH (08:40)
[2019-06-03] MEDS: LEVOTHYROXINE SODIUM 75MCG TABLET PO SCH (09:12)
[2019-06-03 12:00] VITALS: BP 142/73
[2019-06-03 16:00] VITALS: BP 148/75
[2019-06-03] MEDS: VANCOMYCIN 750 MG PREMIX 150 ML IV SCH (16:31)
[2019-06-03] MEDS: SODIUM CHLORIDE 0.45% 1,000 ML IV SCH (17:37)
[2019-06-03 20:00] VITALS: BP 155/88
[2019-06-03] MEDS: TRAZODONE HCL 100MG TABLET PO SCH (20:40)
[2019-06-04] VITALS (8 sets, daily range): BP systolic 148–163; BP diastolic 73–94
[2019-06-04] MEDS: LORAZEPAM 0.5MG TABLET PO PRN ×2 (01:54→07:59)
[2019-06-04] MEDS: DIPHENHYDRAMINE 50MG/ML VIAL IV PRN (03:27)
[2019-06-04] MEDS: VANCOMYCIN 750 MG PREMIX 150 ML IV SCH (04:41)
[2019-06-04] MEDS: PIPERACILLIN/TAZ 2.25G PREMIX 50 ML IV SCH ×2 (06:26→13:04)
[2019-06-04] MEDS: LEVOTHYROXINE SODIUM 75MCG TABLET PO SCH (07:59)
[2019-06-04] MEDS: FAMOTIDINE 20MG/2ML VIAL IV SCH (08:01)
[2019-06-04] MEDS: QUETIAPINE FUMARATE 50MG TABLET PO SCH (08:01)
[2019-06-04] MEDS ORDERED: LORAZEPAM 2MG/ML CPJ IV PRN (09:15)
[2019-06-04 13:42] LABS: HEMATOCRIT 26.5 % (36.0-48.0); HEMOGLOBIN 8.6 g/dL (12.0-16.0); MEAN CORPUSCULAR HEMOGLOBIN 27.6 pg (28.0-32.0); MEAN CORPUSCULAR VOLUME 84.6 fL (81.0-99.0); PLATELET 428 x1000/uL (130-400); RED BLOOD CELL COUNT 3.13 mill/uL (4.2-5.4); RED CELL DISTRIBUTION WIDTH 15.4 % (11.6-14.6)
[2019-06-04 16:45] LABS: BG BASE EXCESS -5.4 mmol/L (-2.0-2.0); BG CARBOXYHEMOGLOBIN 0.5 % (0.5-1.5); BG DEOXYHEMOGLOBIN 2.8 % (0.0-5.0); BG FRACTION INSPIRED OXYGEN 21; BG HCO3 ACT 18.5 mmol/L (22.0-26.0); BG METHEMOGLOBIN 0.3 % (0.0-1.5); BG OXYGEN SATURATION 97.2 % (92.0-98.5); BG OXYHEMOGLOBIN 96.4 % (94.0-97.0); BG PCO2 29.8 mmHg (35.0-45.0); BG PO2 103.7 mmHg (75.0-100.0); BG SAMPLE SITE RIGHT BRACHIAL; BG TOTAL HEMOGLOBIN 8.8 g/dL (12.0-18.0); BG VENT MODE ROOM AIR
[2019-06-04] MEDS ORDERED: LEVOFLOXACIN 750MG PREMIX 150 ML IV SCH (17:30)
[2019-06-04] MEDS ORDERED: LORAZEPAM 0.5MG TABLET PO PRN (19:30)
[2019-06-04] MEDS: SODIUM CHLORIDE 0.45% 1,000 ML IV SCH (22:02)
[2019-06-05] VITALS (7 sets, daily range): BP systolic 137–169; BP diastolic 55–87
[2019-06-05 06:13] LABS: HEMATOCRIT 26.5 % (36.0-48.0); HEMOGLOBIN 8.6 g/dL (12.0-16.0); MEAN CORPUSCULAR HEMOGLOBIN 27.9 pg (28.0-32.0); MEAN CORPUSCULAR VOLUME 85.6 fL (81.0-99.0); PLATELET 427 x1000/uL (130-400); RED CELL DISTRIBUTION WIDTH 15.5 % (11.6-14.6)
[2019-06-05 06:52] LABS: VITAMIN B12 SERUM 1214 pg/mL (211-911)
[2019-06-05 06:56] LABS: CREATINE KINASE MB FRACTION 3.1 ng/mL (0.5-3.6)
[2019-06-05] MEDS: FAMOTIDINE 20MG/2ML VIAL IV SCH (09:24)
[2019-06-05] MEDS: QUETIAPINE FUMARATE 50MG TABLET PO SCH (09:24)
[2019-06-05] MEDS: LEVOTHYROXINE SODIUM 75MCG TABLET PO SCH (09:24)
[2019-06-05] MEDS ORDERED: LACTULOSE 20G/30ML UDC PO NR (13:30)
== END 2019-06-05 21:20 | DRG 871 ==
LOC: ER 12:23 → 7WST 14:09 → EDBEDREQ 14:34 → ENRESERV 15:31
PROVIDERS: ADMIT Internal Medicine; ATTEND Internal Medicine
DX: A41.51 Sepsis due to Escherichia coli [E. coli] (principal); J18.9 Pneumonia, unspecified organism; N17.9 Acute kidney failure, unspecified; E87.1 Hypo-osmolality and hyponatremia; G93.40 Encephalopathy, unspecified; J44.1 Chronic obstructive pulmonary disease with (acute) exacerbation; E72.20 Disorder of urea cycle metabolism, unspecified; J44.0 Chronic obstructive pulmonary disease with (acute) lower respiratory infection; M62.82 Rhabdomyolysis; N13.30 Unspecified hydronephrosis; K56.7 Ileus, unspecified; G89.4 Chronic pain syndrome; K80.20 Calculus of gallbladder without cholecystitis without obstruction; R51 Headache; N32.89 Other specified disorders of bladder; K59.00 Constipation, unspecified; E86.0 Dehydration; N18.3 Chronic kidney disease, stage 3 (moderate); I12.9 Hypertensive chronic kidney disease with stage 1 through stage 4 chronic kidney disease, or unspecified chronic kidney disease; E83.39 Other disorders of phosphorus metabolism; R33.9 Retention of urine, unspecified; E83.41 Hypermagnesemia; R62.7 Adult failure to thrive; D64.9 Anemia, unspecified; F32.9 Major depressive disorder, single episode, unspecified; Z90.49 Acquired absence of other specified parts of digestive tract; Z68.24 Body mass index [BMI] 24.0-24.9, adult; Z79.899 Other long term (current) drug therapy; Z72.0 Tobacco use
CPT/HCPCS: 36415; 36600; 71045; 74176; 80048; 80061; 80202; 80305; 82140; 82270; 82375; 82550; 82553; 82607; 82805; 83540; 83550; 83735; 83880; 84100; 84439; 84443; 84484; 85014; 85018; 85027; 87077; 87186; 93005; 93306; 93970; 96374; 97116; 97162; 97530; 99285; C1893; J0456; J1200; J1956; J2060; J2543; J3370; J3490; J7030; J7060; J7611; A4315

== ENCOUNTER 2019-07-19 09:40 | Inpatient (IN) | payer BC, MEDICAID ==
[~2019-07-19] VITALS: Ht 162.6 cm; Wt 64.0 kg
[~2019-07-19 09:40] MED LIST changes: +GABA-531 PO; +HYDR-4009 PO; +HYDR-4135 PO; +LEVO75TA7 PO; +MIRT-91 PO; +TRAZ300T11 PO
[2019-07-19] MEDS ORDERED: SODIUM CHLORIDE 0.9% 1000ML BAG (SEPSIS BOLUS) IV ONE (10:00)
[2019-07-19 10:35] LABS: BASOPHILS % 0.2 % (0.0-2.0); EOSINOPHILS % 0.7 % (0.0-5.0); HEMOGLOBIN. 7.8 g/dL (12.0-16.0); LYMPHOCYTES % 10.5 % (20.0-50.0); MEAN CORPUSCULAR HEMOGLOBIN 26.5 pg (28.0-32.0); MEAN CORPUSCULAR VOLUME 81.4 fL (81.0-99.0); MEAN PLATELET VOLUME 7.8 fl (7.4-10.4); MONOCYTES % 9.3 % (2.0-8.0); NEUTROPHILS % 79.3 % (40.0-76.0); PLATELET 369 x1000/uL (130-400); RED BLOOD CELL COUNT 2.95 mill/uL (4.2-5.4); RED CELL DISTRIBUTION WIDTH 18.2 % (11.6-14.6)
[2019-07-19 10:41] LABS: CHLORIDE 112 mEq/L (98-107)
[2019-07-19 10:42] LABS: INR 0.9; PROTHROMBIN TIME 9.6 sec (9.6-11.0)
[2019-07-19 10:46] LABS: CLARITY URINE CLEAR (CLEAR); COLOR URINE YELLOW (YELLOW); KETONES URINE TRACE (NEGATIVE); LEUKOCYTE ESTERASE URINE 1+ (NEGATIVE); NITRITE URINE NEGATIVE (NEGATIVE); OCCULT BLOOD URINE NEGATIVE (NEGATIVE); PH URINE 5.5 (4.5-8.0); PROTEIN URINE 1+ (NEGATIVE); SPECIFIC GRAVITY URINE 1.018 (1.005-1.030); UROBILINOGEN URINE 0.2 E.U./dL (0.2-1.0)
[2019-07-19] MEDS ORDERED: LEVOFLOXACIN 750MG PREMIX 150 ML IV ONE (11:45)
[2019-07-19] MEDS ORDERED: CLONIDINE 0.1MG TABLET PO PRN (15:15)
[2019-07-19] MEDS ORDERED: SODIUM POLYSTYRENE SULFONATE 15 G/60 ML BOT PO NR (15:15)
[2019-07-19] MEDS ORDERED: DIPHENHYDRAMINE 50MG/ML VIAL IV PRN (15:15)
[2019-07-19] MEDS ORDERED: MAGNESIUM/ALUMINUM HYDROXIDE/SIMETHICONE 30ML UDC PO PRN (15:15)
[2019-07-19] MEDS ORDERED: ONDANSETRON HCL 4MG/2ML INJ IV PRN (15:15)
[2019-07-19] MEDS ORDERED: IPRATROPIUM/ALBUTEROL 0.5-3(2.5)MG/3ML NEB INH PRN (15:15)
[2019-07-19] MEDS ORDERED: DOCUSATE SODIUM 100MG CAPSULE PO PRN (15:15)
[2019-07-19] MEDS ORDERED: LEVOFLOXACIN 500MG PREMIX 100 ML IV SCH (15:15)
[2019-07-19] MEDS ORDERED: HYDROCODONE/ACETAMINOPHEN 5/325MG TABLET PO PRN (15:15)
[2019-07-19] MEDS ORDERED: GUAIFENESIN 200MG/10ML SUGAR FREE UDC PO PRN (15:15)
[2019-07-19] MEDS ORDERED: LORAZEPAM 0.5MG TABLET PO PRN (15:15)
[2019-07-19] MEDS ORDERED: ACETAMINOPHEN 650MG SUPP PR PRN (15:15)
[2019-07-19] MEDS: SODIUM CHLORIDE 0.45% 1,000 ML IV SCH (16:35)
[2019-07-19 16:58] LABS: BG BASE EXCESS -12.2 mmol/L (-2.0-2.0); BG CARBOXYHEMOGLOBIN 0.9 % (0.5-1.5); BG DEOXYHEMOGLOBIN 3.8 % (0.0-5.0); BG FRACTION INSPIRED OXYGEN 21; BG HCO3 ACT 14.1 mmol/L (22.0-26.0); BG METHEMOGLOBIN 0.1 % (0.0-1.5); BG OXYGEN SATURATION 96.2 % (92.0-98.5); BG OXYHEMOGLOBIN 95.2 % (94.0-97.0); BG PCO2 33.4 mmHg (35.0-45.0); BG PH 7.242 (7.350-7.450); BG PO2 99.8 mmHg (75.0-100.0); BG SAMPLE SITE RIGHT BRACHIAL; BG VENT MODE ROOM AIR
[2019-07-19 17:13] LABS: TOTAL IRON BINDING CAPACITY 333 ug/dL (250-450)
[2019-07-19 22:35] VITALS: BP 133/69
[2019-07-19 23:41] LABS: CREATINE KINASE 133 IU/L (26-192)
[2019-07-19 23:42] LABS: CREATINE KINASE MB FRACTION 3.3 ng/mL (0.5-3.6)
[2019-07-20] MEDS: SODIUM CHLORIDE 0.45% 1,000 ML IV SCH ×3 (01:15→23:32)
[2019-07-20] MEDS: ACETAMINOPHEN 325MG TABLET PO PRN (01:35)
[2019-07-20 04:00] VITALS: BP_SYST 110; BP_SYST 111; BP_DIAS 52; BP_DIAS 69
[2019-07-20 06:24] LABS: BASOPHILS % 0.3 % (0.0-2.0); EOSINOPHILS % 1.7 % (0.0-5.0); HEMOGLOBIN. 7.9 g/dL (12.0-16.0); LYMPHOCYTES % 12.6 % (20.0-50.0); MEAN CORPUSCULAR HEMOGLOBIN 26.7 pg (28.0-32.0); MEAN CORPUSCULAR VOLUME 81.6 fL (81.0-99.0); MEAN PLATELET VOLUME 7.6 fl (7.4-10.4); MONOCYTES % 9.1 % (2.0-8.0); NEUTROPHILS % 76.3 % (40.0-76.0); PLATELET 338 x1000/uL (130-400); RED BLOOD CELL COUNT 2.94 mill/uL (4.2-5.4); RED CELL DISTRIBUTION WIDTH 17.8 % (11.6-14.6)
[2019-07-20 07:06] LABS: CHLORIDE 119 mEq/L (98-107)
[2019-07-20 07:22] LABS: CREATINE KINASE MB FRACTION 2.9 ng/mL (0.5-3.6)
[2019-07-20 07:24] LABS: CREATINE KINASE 118 IU/L (26-192); LDL CHOLESTEROL 98 mg/dL (5-100); T4 FREE 0.68 ng/dL (0.76-1.46)
[2019-07-20 07:25] LABS: HDL CHOLESTEROL 60 mg/dL (40-59)
[2019-07-20 08:00] VITALS: BP 103/62
[2019-07-20] MEDS: FAMOTIDINE 20MG/2ML VIAL IV SCH (08:51)
[2019-07-20 12:00] VITALS: BP 106/60
[2019-07-20 16:00] VITALS: BP 124/56
[2019-07-21] MEDS ORDERED: TRAZODONE HCL 50MG TABLET PO PRN (00:30)
[2019-07-21 04:00] VITALS: BP 110/69
[2019-07-21] MEDS: SODIUM CHLORIDE 0.45% 1,000 ML IV SCH ×2 (06:03→16:51)
[2019-07-21] MEDS: FAMOTIDINE 20MG/2ML VIAL IV SCH (09:03)
[2019-07-21] MEDS ORDERED: LEVOFLOXACIN 250MG PREMIX 50 ML IV SCH (12:00)
[2019-07-21 13:17] LABS: BASOPHILS % 0.7 % (0.0-2.0); EOSINOPHILS % 2.4 % (0.0-5.0); HEMATOCRIT. 25.2 % (36.0-48.0); LYMPHOCYTES % 16.7 % (20.0-50.0); MEAN CORPUSCULAR HEMOGLOBIN 26.3 pg (28.0-32.0); MEAN CORPUSCULAR VOLUME 82.7 fL (81.0-99.0); MONOCYTES % 10.1 % (2.0-8.0); NEUTROPHILS % 70.1 % (40.0-76.0); PLATELET 337 x1000/uL (130-400); RED BLOOD CELL COUNT 3.04 mill/uL (4.2-5.4); RED CELL DISTRIBUTION WIDTH 17.9 % (11.6-14.6)
[2019-07-21] MEDS: ACETAMINOPHEN 325MG TABLET PO PRN (14:35)
[2019-07-21] MEDS ORDERED: FERROUS SULFATE 325MG TABLET PO SCH (17:40)
[2019-07-21 20:00] VITALS: BP 132/64
[2019-07-21] MEDS ORDERED: LEVO500T2 PO (20:10)
[2019-07-21] MEDS ORDERED: FAMO-135 PO (20:11)
[2019-07-21] MEDS ORDERED: FERR325T6 PO (20:11)
[2019-07-21 20:12] VITALS: BP 132/64
[2019-07-22] MEDS ORDERED: LEVOFLOXACIN 250MG PREMIX 50 ML IV SCH (12:00)
== END 2019-07-21 21:06 | disposition home or self-care (01) | DRG 682 ==
LOC: ER 09:55 → 8WST 12:38 → ENRESERV 22:39
PROVIDERS: ADMIT Internal Medicine; ATTEND Internal Medicine
DX: N17.9 Acute kidney failure, unspecified (principal); G93.41 Metabolic encephalopathy; K56.609 Unspecified intestinal obstruction, unspecified as to partial versus complete obstruction; K56.7 Ileus, unspecified; N13.6 Pyonephrosis; R80.9 Proteinuria, unspecified; E86.0 Dehydration; B95.2 Enterococcus as the cause of diseases classified elsewhere; D64.9 Anemia, unspecified; F17.200 Nicotine dependence, unspecified, uncomplicated; E87.5 Hyperkalemia; F32.9 Major depressive disorder, single episode, unspecified; I12.9 Hypertensive chronic kidney disease with stage 1 through stage 4 chronic kidney disease, or unspecified chronic kidney disease; J44.9 Chronic obstructive pulmonary disease, unspecified; K44.9 Diaphragmatic hernia without obstruction or gangrene; N18.3 Chronic kidney disease, stage 3 (moderate); Z86.73 Personal history of transient ischemic attack (TIA), and cerebral infarction without residual deficits; Z91.19 Patient's noncompliance with other medical treatment and regimen; Z90.49 Acquired absence of other specified parts of digestive tract
CPT/HCPCS: 36415; 36600; 71045; 74018; 74176; 80048; 80061; 81003; 82140; 82270; 82375; 82550; 82553; 82805; 83540; 83550; 83605; 84145; 84439; 84443; 84484; 87077; 87186; 93005; 97162; 99285; J1956; J3490; J7030

== ENCOUNTER 2019-10-20 10:18 | Inpatient (IN) | payer BC, MEDICAID ==
[~2019-10-20] VITALS: Ht 162.6 cm; Wt 64.6 kg
[~2019-10-20 10:18] MED LIST changes: +FAMO-135 PO; +FERR325T6 PO; +LEVO500T2 PO
[2019-10-20] MEDS ORDERED: ALPRAZOLAM 0.5 MG TABLET PO ONE (10:45)
[2019-10-20] MEDS ORDERED: MIDAZOLAM HCL 2 MG/2 ML VIAL IM ONE ×2 (11:30→11:45)
[2019-10-20 11:50] LABS: BASOPHILS % 0.4 % (0.0-2.0); EOSINOPHILS % 1.8 % (0.0-5.0); HEMATOCRIT. 33.4 % (36.0-48.0); HEMOGLOBIN. 10.9 g/dL (12.0-16.0); LYMPHOCYTES % 9.3 % (20.0-50.0); MEAN CORPUSCULAR HEMOGLOBIN 28.4 pg (28.0-32.0); MEAN CORPUSCULAR VOLUME 87.2 fL (81.0-99.0); MONOCYTES % 10.4 % (2.0-8.0); NEUTROPHILS % 78.1 % (40.0-76.0); PLATELET 362 x1000/uL (130-400); RED BLOOD CELL COUNT 3.83 mill/uL (4.2-5.4); RED CELL DISTRIBUTION WIDTH 17.4 % (11.6-14.6)
[2019-10-20 11:52] LABS: CHLORIDE 104 mEq/L (98-107)
[2019-10-20 11:57] LABS: ETHANOL BLOOD < 10 mg/dL
[2019-10-20] MEDS ORDERED: SODIUM CHLORIDE 0.9% 500 ML IV ONE (13:15)
[2019-10-20] MEDS ORDERED: MORPHINE SULFATE 2 MG/ML CPJ (NOT FOR IM USE) IV ONE ×2 (13:15→16:15)
[2019-10-20] MEDS ORDERED: PROPRANOLOL HCL 20MG TABLET PO ONE (15:45)
[2019-10-20] MEDS ORDERED: IOHEXOL-350 100 ML BOTTLE ONE (15:55)
[2019-10-20] MEDS ORDERED: PROPRANOLOL HCL 10MG TABLET PO NR (16:15)
[2019-10-20 20:00] VITALS: BP 128/81
[2019-10-20] MEDS ORDERED: ACETAMINOPHEN 500MG TABLET PO PRN (20:15)
[2019-10-20] MEDS: METOPROLOL TARTRATE 50MG TABLET PO SCH (21:49)
[2019-10-20] MEDS: MIRTAZAPINE 15MG TABLET PO SCH (21:49)
[2019-10-20] MEDS: LEVOTHYROXINE SODIUM 100MCG TABLET PO SCH (21:49)
[2019-10-20] MEDS: HYDRALAZINE HCL 50MG TABLET PO SCH (21:50)
[2019-10-20] MEDS: QUETIAPINE FUMARATE 50MG TABLET PO SCH (21:50)
[2019-10-20] MEDS: GABAPENTIN 300MG CAPSULE PO SCH (21:53)
[2019-10-20] MEDS: DIPHENHYDRAMINE 50MG CAPSULE PO PRN (23:49)
[2019-10-21] VITALS: BP 129/65
[2019-10-21 04:00] VITALS: BP 125/66
[2019-10-21] MEDS: TRAMADOL 50MG TABLET PO PRN (06:10)
[2019-10-21] MEDS: HYDRALAZINE HCL 50MG TABLET PO SCH ×3 (06:10→22:00)
[2019-10-21 07:30] VITALS: BP 124/66
[2019-10-21 07:52] LABS: BASOPHILS % 0.6 % (0.0-2.0); HEMATOCRIT. 29.8 % (36.0-48.0); HEMOGLOBIN. 9.7 g/dL (12.0-16.0); LYMPHOCYTES % 21.2 % (20.0-50.0); MEAN CORPUSCULAR HEMOGLOBIN 28.5 pg (28.0-32.0); MEAN CORPUSCULAR VOLUME 87.7 fL (81.0-99.0); MEAN PLATELET VOLUME 7.7 fl (7.4-10.4); MONOCYTES % 12.4 % (2.0-8.0); NEUTROPHILS % 61.8 % (40.0-76.0); PLATELET 382 x1000/uL (130-400); RED CELL DISTRIBUTION WIDTH 16.8 % (11.6-14.6)
[2019-10-21] MEDS: QUETIAPINE FUMARATE 50MG TABLET PO SCH (09:41)
[2019-10-21] MEDS: LEVOTHYROXINE SODIUM 100MCG TABLET PO SCH (09:41)
[2019-10-21] MEDS: GABAPENTIN 300MG CAPSULE PO SCH ×3 (09:41→16:26)
[2019-10-21] MEDS: METOPROLOL TARTRATE 50MG TABLET PO SCH ×2 (09:41→20:12)
[2019-10-21] MEDS: LISINOPRIL 20MG TABLET PO SCH (09:42)
[2019-10-21] MEDS: FAMOTIDINE 20MG TABLET PO SCH (09:42)
[2019-10-21] MEDS: AMLODIPINE 10MG TABLET PO SCH (09:42)
[2019-10-21] MEDS: ENOXAPARIN 40MG/0.4ML SYR SUBCUT SCH (09:43)
[2019-10-21 12:00] VITALS: BP 115/60
[2019-10-21 16:00] VITALS: BP 110/53
[2019-10-21 17:21] LABS: BG BASE EXCESS 2.1 mmol/L (-2.0-2.0); BG CARBOXYHEMOGLOBIN 0.2 % (0.5-1.5); BG DEOXYHEMOGLOBIN 7.6 % (0.0-5.0); BG FRACTION INSPIRED OXYGEN 21; BG HCO3 ACT 26.4 mmol/L (22.0-26.0); BG METHEMOGLOBIN 0.3 % (0.0-1.5); BG OXYGEN SATURATION 92.4 % (92.0-98.5); BG OXYHEMOGLOBIN 91.9 % (94.0-97.0); BG PH 7.437 (7.350-7.450); BG PO2 67.6 mmHg (75.0-100.0); BG SAMPLE SITE RIGHT RADIAL; BG TOTAL HEMOGLOBIN 10.6 g/dL (12.0-18.0); BG VENT MODE ROOM AIR
[2019-10-21] MEDS ORDERED: LEVOFLOXACIN 500MG PREMIX 100 ML IV NR (18:00)
[2019-10-21 20:00] VITALS: BP 96/52
[2019-10-21] MEDS: MIRTAZAPINE 15MG TABLET PO SCH (20:18)
[2019-10-21] MEDS: IPRATROPIUM/ALBUTEROL 0.5-3(2.5)MG/3ML NEB HHN SCH (20:37)
[2019-10-22] VITALS (7 sets, daily range): BP systolic 96–127; BP diastolic 50–74
[2019-10-22] MEDS: DIPHENHYDRAMINE 50MG CAPSULE PO PRN (00:58)
[2019-10-22] MEDS: IPRATROPIUM/ALBUTEROL 0.5-3(2.5)MG/3ML NEB HHN SCH ×4 (02:50→21:53)
[2019-10-22 03:42] LABS: CLARITY URINE CLOUDY (CLEAR); COLOR URINE YELLOW (YELLOW); KETONES URINE NEGATIVE (NEGATIVE); LEUKOCYTE ESTERASE URINE 3+ (NEGATIVE); NITRITE URINE NEGATIVE (NEGATIVE); OCCULT BLOOD URINE NEGATIVE (NEGATIVE); PH URINE 6.5 (4.5-8.0); PROTEIN URINE NEGATIVE (NEGATIVE); SPECIFIC GRAVITY URINE 1.012 (1.005-1.030); UROBILINOGEN URINE 0.2 E.U./dL (0.2-1.0)
[2019-10-22] MEDS: LEVOTHYROXINE SODIUM 75MCG TABLET PO SCH (06:40)
[2019-10-22] MEDS: TRAMADOL 50MG TABLET PO PRN ×2 (06:40→20:47)
[2019-10-22] MEDS: HYDRALAZINE HCL 50MG TABLET PO SCH ×3 (06:40→22:38)
[2019-10-22 07:31] LABS: BASOPHILS % 0.7 % (0.0-2.0); EOSINOPHILS % 3.6 % (0.0-5.0); HEMATOCRIT. 30.8 % (36.0-48.0); LYMPHOCYTES % 17.4 % (20.0-50.0); MEAN CORPUSCULAR HEMOGLOBIN 28.7 pg (28.0-32.0); MEAN CORPUSCULAR VOLUME 88.6 fL (81.0-99.0); MEAN PLATELET VOLUME 7.7 fl (7.4-10.4); MONOCYTES % 13.8 % (2.0-8.0); NEUTROPHILS % 64.5 % (40.0-76.0); PLATELET 431 x1000/uL (130-400); RED BLOOD CELL COUNT 3.48 mill/uL (4.2-5.4); RED CELL DISTRIBUTION WIDTH 16.6 % (11.6-14.6)
[2019-10-22] MEDS: FAMOTIDINE 20MG TABLET PO SCH (09:00)
[2019-10-22] MEDS: AMLODIPINE 10MG TABLET PO SCH (09:12)
[2019-10-22] MEDS: LISINOPRIL 20MG TABLET PO SCH (09:12)
[2019-10-22] MEDS: QUETIAPINE FUMARATE 50MG TABLET PO SCH (09:12)
[2019-10-22] MEDS: METOPROLOL TARTRATE 50MG TABLET PO SCH ×2 (09:12→20:47)
[2019-10-22] MEDS: ENOXAPARIN 40MG/0.4ML SYR SUBCUT SCH (09:13)
[2019-10-22] MEDS: GABAPENTIN 300MG CAPSULE PO SCH ×3 (09:14→16:56)
[2019-10-22] MEDS: LEVOFLOXACIN 250MG PREMIX 50 ML IV SCH (17:02)
[2019-10-22] MEDS: MIRTAZAPINE 15MG TABLET PO SCH (20:47)
[2019-10-22] MEDS: SODIUM CHLORIDE 0.9% 1,000 ML IV SCH (22:39)
[2019-10-23] VITALS: BP 110/56
[2019-10-23] MEDS: DIPHENHYDRAMINE 50MG CAPSULE PO PRN (00:58)
[2019-10-23] MEDS: IPRATROPIUM/ALBUTEROL 0.5-3(2.5)MG/3ML NEB HHN SCH ×3 (03:05→15:44)
[2019-10-23 04:00] VITALS: BP 115/82
[2019-10-23 06:42] LABS: BASOPHILS % 0.4 % (0.0-2.0); EOSINOPHILS % 3.3 % (0.0-5.0); HEMATOCRIT. 32.1 % (36.0-48.0); HEMOGLOBIN. 10.5 g/dL (12.0-16.0); LYMPHOCYTES % 22.6 % (20.0-50.0); MEAN CORPUSCULAR HEMOGLOBIN 28.8 pg (28.0-32.0); MEAN CORPUSCULAR VOLUME 88.2 fL (81.0-99.0); MEAN PLATELET VOLUME 7.6 fl (7.4-10.4); MONOCYTES % 14.6 % (2.0-8.0); NEUTROPHILS % 59.1 % (40.0-76.0); PLATELET 454 x1000/uL (130-400); RED BLOOD CELL COUNT 3.64 mill/uL (4.2-5.4); RED CELL DISTRIBUTION WIDTH 16.6 % (11.6-14.6)
[2019-10-23 08:00] VITALS: BP 135/61
[2019-10-23] MEDS: TRAMADOL 50MG TABLET PO PRN (09:30)
[2019-10-23] MEDS: LISINOPRIL 20MG TABLET PO SCH (09:52)
[2019-10-23] MEDS: FAMOTIDINE 20MG TABLET PO SCH (09:52)
[2019-10-23] MEDS: METOPROLOL TARTRATE 50MG TABLET PO SCH (09:52)
[2019-10-23] MEDS: QUETIAPINE FUMARATE 50MG TABLET PO SCH (09:53)
[2019-10-23] MEDS: LEVOTHYROXINE SODIUM 75MCG TABLET PO SCH (09:53)
[2019-10-23] MEDS: AMLODIPINE 10MG TABLET PO SCH (09:53)
[2019-10-23] MEDS: GABAPENTIN 300MG CAPSULE PO SCH ×3 (09:53→17:56)
[2019-10-23] MEDS: ENOXAPARIN 40MG/0.4ML SYR SUBCUT SCH (09:54)
[2019-10-23 12:00] VITALS: BP 123/57
[2019-10-23] MEDS: SODIUM CHLORIDE 0.9% 1,000 ML IV SCH (14:46)
[2019-10-23] MEDS: HYDRALAZINE HCL 50MG TABLET PO SCH (14:52)
[2019-10-23] MEDS ORDERED: LEVO500T2 PO (15:46)
[2019-10-23 16:00] VITALS: BP 130/58
[2019-10-23] MEDS: LEVOFLOXACIN 250MG PREMIX 50 ML IV SCH (17:57)
[2019-10-23 18:05] VITALS: BP 130/58
== END 2019-10-23 19:00 | disposition home or self-care (01) | DRG 689 ==
LOC: ER 11:20 → 7WST 16:32 → ENRESERV 17:09
PROVIDERS: ADMIT Internal Medicine; ATTEND Internal Medicine
DX: N39.0 Urinary tract infection, site not specified (principal); J18.1 Lobar pneumonia, unspecified organism; C34.90 Malignant neoplasm of unspecified part of unspecified bronchus or lung; I12.9 Hypertensive chronic kidney disease with stage 1 through stage 4 chronic kidney disease, or unspecified chronic kidney disease; E05.90 Thyrotoxicosis, unspecified without thyrotoxic crisis or storm; E03.9 Hypothyroidism, unspecified; F41.9 Anxiety disorder, unspecified; N18.9 Chronic kidney disease, unspecified; Z79.2 Long term (current) use of antibiotics; Z79.899 Other long term (current) drug therapy; Z90.2 Acquired absence of lung [part of]
CPT/HCPCS: 36415; 36600; 71045; 71275; 80048; 80307; 80320; 80329; 81003; 82375; 82805; 83880; 84439; 84443; 84484; 87077; 87186; 93005; 94640; 96361; 96372; 96374; 96376; 97162; 99285; J1650; J1956; J2250; J2270; J7030; J7040; J7620; Q0163; Q9967; A4315; G0480

== ENCOUNTER 2023-03-03 02:46 | Inpatient (IN) | payer MEDICARE, MEDICAID ==
[~2023-03-03] VITALS: Ht 165.1 cm; Wt 66.7 kg
[~2023-03-03 02:46] MED LIST changes: -FAMO-135 PO; -FERR325T6 PO; -GABA-531 PO; -HYDR-4009 PO; -LEVO500T2 PO; -LEVO75TA7 PO; -LISI-604 PO; -MIRT-91 PO; -QUET50TA PO; -TRAZ300T11 PO
[2023-03-03 06:21] LABS: BASOPHILS % 0.8 % (0.0-2.0); EOSINOPHILS % 1.8 % (0.0-5.0); HEMATOCRIT. 29.6 % (36.0-48.0); HEMOGLOBIN. 9.6 g/dL (12.0-16.0); LYMPHOCYTES % 20.3 % (20.0-50.0); MEAN CORPUSCULAR HEMOGLOBIN 29.4 pg (28.0-32.0); MEAN CORPUSCULAR VOLUME 90.3 fL (81.0-99.0); MEAN PLATELET VOLUME 7.9 fl (7.4-10.4); MONOCYTES % 8.7 % (2.0-8.0); NEUTROPHILS % 68.4 % (40.0-76.0); PLATELET 521 x1000/uL (130-400); RED BLOOD CELL COUNT 3.28 mill/uL (4.2-5.4); RED CELL DISTRIBUTION WIDTH 17.9 % (11.6-14.6)
[2023-03-03 06:28] LABS: CHLORIDE 116 mEq/L (98-107)
[2023-03-03 09:47] VITALS: BP 123/66
[2023-03-03 09:53] VITALS: BP 123/66
[2023-03-03 12:00] VITALS: BP 130/62
[2023-03-03] MEDS ORDERED: DOCUSATE SODIUM 100MG CAPSULE PO PRN (12:00)
[2023-03-03] MEDS ORDERED: IPRATROPIUM/ALBUTEROL 0.5-3(2.5)MG/3ML NEB HHN PRN (12:00)
[2023-03-03] MEDS ORDERED: POTASSIUM CHLORIDE 20MEQ TABLET SR PO NR (12:00)
[2023-03-03] MEDS ORDERED: ONDANSETRON HCL 4MG/2ML INJ IV PRN (12:00)
[2023-03-03] MEDS ORDERED: NALOXONE HCL 0.4MG/ML VIAL IV PRN (12:45)
[2023-03-03] MEDS: AMLODIPINE 10MG TABLET PO SCH (12:46)
[2023-03-03] MEDS: METHYLPREDNISOLONE SOD SUCC 40 MG/ML VIAL IV SCH ×2 (12:46→22:01)
[2023-03-03] MEDS ORDERED: LEVOFLOXACIN 500MG PREMIX 100 ML IV NR (13:00)
[2023-03-03] MEDS: ACETAMINOPHEN 325MG TABLET PO PRN ×2 (14:47→18:47)
[2023-03-03 15:39] LABS: *AMPHETAMINES SCREEN URINE NEGATIVE (NEGATIVE); *BARBITURATES SCREEN URINE NEGATIVE (NEGATIVE); *BENZODIAZEPINES SCREEN URINE NEGATIVE (NEGATIVE); *COCAINE SCREEN URINE NEGATIVE (NEGATIVE); CANNABINOID URINE SCREEN NEGATIVE (NEGATIVE); METHADONE URINE SCREEN NEGATIVE (NEGATIVE); OPIATES URINE SCREEN NEGATIVE (NEGATIVE); PHENCYCLIDINE URINE SCREEN NEGATIVE (NEGATIVE)
[2023-03-03 16:00] VITALS: BP 107/59
[2023-03-03 16:49] LABS: CREATINE KINASE MB FRACTION 4.2 ng/mL (0.5-3.6)
[2023-03-03] MEDS: ENOXAPARIN 30MG/0.3ML SYR SUBCUT SCH (17:42)
[2023-03-03 20:00] VITALS: BP 137/64
[2023-03-03] MEDS ORDERED: DIPHENHYDRAMINE 25MG CAPSULE PO NR (20:15)
[2023-03-03 22:00] VITALS: BP 100/63
[2023-03-03] MEDS: HYDROCODONE/ACETAMINOPHEN 5/325MG TABLET PO PRN (22:12)
[2023-03-04] VITALS (10 sets, daily range): BP systolic 114–145; BP diastolic 54–77
[2023-03-04 00:04] LABS: CREATINE KINASE MB FRACTION 3.1 ng/mL (0.5-3.6)
[2023-03-04] MEDS: METHYLPREDNISOLONE SOD SUCC 40 MG/ML VIAL IV SCH ×2 (08:19→21:12)
[2023-03-04] MEDS: AMLODIPINE 10MG TABLET PO SCH (08:19)
[2023-03-04] MEDS: HYDROCODONE/ACETAMINOPHEN 5/325MG TABLET PO PRN ×2 (09:32→17:43)
[2023-03-04 10:27] LABS: BASOPHILS % 0.4 % (0.0-2.0); HEMATOCRIT. 27.8 % (36.0-48.0); HEMOGLOBIN. 9.1 g/dL (12.0-16.0); MEAN CORPUSCULAR HEMOGLOBIN 29.7 pg (28.0-32.0); MEAN CORPUSCULAR VOLUME 90.3 fL (81.0-99.0); MEAN PLATELET VOLUME 8.4 fl (7.4-10.4); MONOCYTES % 4.2 % (2.0-8.0); NEUTROPHILS % 76.4 % (40.0-76.0); PLATELET 470 x1000/uL (130-400); RED BLOOD CELL COUNT 3.07 mill/uL (4.2-5.4); RED CELL DISTRIBUTION WIDTH 17.9 % (11.6-14.6)
[2023-03-04 10:32] LABS: CHLORIDE 120 mEq/L (98-107)
[2023-03-04] MEDS: LEVOFLOXACIN 250MG PREMIX 50 ML IV SCH (13:17)
[2023-03-04] MEDS: ACETAMINOPHEN 325MG TABLET PO PRN (15:50)
[2023-03-04] MEDS ORDERED: PROMETHAZINE HCL 6.25 MG/5 ML 118ML PO PRN (16:30)
[2023-03-04] MEDS: ENOXAPARIN 30MG/0.3ML SYR SUBCUT SCH (17:42)
[2023-03-05] VITALS: BP 134/53
[2023-03-05] MEDS: ACETAMINOPHEN 325MG TABLET PO PRN (00:54)
[2023-03-05 04:00] VITALS: BP 139/70
[2023-03-05 08:00] VITALS: BP 112/73
[2023-03-05] MEDS: METHYLPREDNISOLONE SOD SUCC 40 MG/ML VIAL IV SCH (08:46)
[2023-03-05] MEDS: AMLODIPINE 10MG TABLET PO SCH (08:47)
[2023-03-05] MEDS: HYDROCODONE/ACETAMINOPHEN 5/325MG TABLET PO PRN (08:56)
[2023-03-05] MEDS ORDERED: OMEPRAZOLE 20MG CAPSULE EXTENDED RELEASE PO SCH (11:15)
[2023-03-05] MEDS ORDERED: P20 MT (11:47)
[2023-03-05] MEDS ORDERED: ALBU18HF2 IH (11:47)
[2023-03-05] MEDS ORDERED: IPRA3AMP9 NEB (11:47)
[2023-03-05 12:00] VITALS: BP 141/43
[2023-03-05] MEDS: LEVOFLOXACIN 250MG PREMIX 50 ML IV SCH (12:23)
[2023-03-05 13:40] VITALS: BP 141/43
[2023-03-06] MEDS ORDERED: LEVOFLOXACIN 250MG TABLET PO SCH (11:00)
== END 2023-03-05 14:50 | disposition home or self-care (01) | DRG 291 ==
LOC: ER 03:00 → 5EST 06:18 → 7EST 03-04 13:03
PROVIDERS: ADMIT Internal Medicine; ATTEND Internal Medicine
DX: I11.0 Hypertensive heart disease with heart failure (principal); I50.33 Acute on chronic diastolic (congestive) heart failure; J44.1 Chronic obstructive pulmonary disease with (acute) exacerbation; N17.9 Acute kidney failure, unspecified; J06.9 Acute upper respiratory infection, unspecified; D64.9 Anemia, unspecified; E87.6 Hypokalemia; Z85.118 Personal history of other malignant neoplasm of bronchus and lung; Z79.899 Other long term (current) drug therapy; W18.30XA Fall on same level, unspecified, initial encounter; Y93.89 Activity, other specified; Y92.89 Other specified places as the place of occurrence of the external cause; Y99.8 Other external cause status
CPT/HCPCS: 36415; 71045; 74176; 80053; 80305; 82550; 82553; 83605; 83880; 84484; 85025; 85379; 93005; 99285; J1650; J1956; J2920; Q0163; Q0169

== ENCOUNTER 2024-09-29 03:25 | Emergency (ER) | payer BC, MEDICAID ==
[~2024-09-29] VITALS: Ht 167.6 cm; Wt 52.0 kg
[~2024-09-29 03:25] MED LIST changes: +ALBU18HF2 IH; -HYDR-4135 PO; +HYDR50TA40 PO; +IPRA3AMP9 NEB; +P20 MT
[2024-09-29 03:27] VITALS: O2SAT 100
[2024-09-29 03:38] VITALS: BP 156/68; PULSE 99; RESP 20; TEMP 97.8; O2SAT 100
[2024-09-29] MEDS: KETOROLAC 30MG/ML VIAL IM ONE (05:09)
[2024-09-29] MEDS: HYDROCODONE/ACETAMINOPHEN 10/325MG TABLET PO ONE (05:09)
== END 2024-09-29 06:39 | disposition home or self-care (01) ==
LOC: ER 03:25
DX: G89.29 Other chronic pain (principal); M54.9 Dorsalgia, unspecified; I10 Essential (primary) hypertension; Z79.899 Other long term (current) drug therapy
CPT/HCPCS: 99283; 96372; J1885